=== PATIENT | female | born 1980 | race Caucasian/White ===

== ENCOUNTER 2017-12-15 13:08 | Outpatient (CLI) | payer OTHER ==
--- NOTE | 2017-12-15 15:56 | ULT ---
THYROID ULTRASOUND: HISTORY: Abnormal thyroid exam. COMPARISON: None. TECHNIQUE: Sagittal and transverse imaging of the thyroid gland is performed. FINDINGS: Thyroid isthmus measures 0.2 cm in length. The right thyroid lobe measures 4.5 x 2.4 x 2.0 cm. The left thyroid lobe measures 4.3 x 2.4 x 1.4 cm. There is diffuse heterogeneity throughout the thyroid gland. There does appear to be a solid nodule in the lower pole of the left thyroid lobe measuring 0.8 x 0.7 x 0.5 cm. IMPRESSION: Diffuse heterogeneity throughout the thyroid gland with a solitary solid nodule noted in the inferior pole left thyroid lobe. TIRADS calculator of TR3. Followup imaging in 1 year is recommended. POS: TEA
== END 2017-12-15 13:09 | disposition home or self-care (01) ==
LOC: BICULT 13:08
PROVIDERS: ATTEND Family Medicine
DX: R94.6 Abnormal results of thyroid function studies (principal); E04.1 Nontoxic single thyroid nodule
CPT/HCPCS: 76536